=== PATIENT | female | born 1990 | race Hispanic/Latino ===

== ENCOUNTER 2018-02-22 10:08 | Emergency (ER) | payer OTHER | END 2018-02-22 11:40 | disposition home or self-care (01) | LOC: ERS 10:08 | DX: O98.513 Other viral diseases complicating pregnancy, third trimester (principal); B34.9 Viral infection, unspecified; Z3A.29 29 weeks gestation of pregnancy | CPT/HCPCS: 87804 ==

== ENCOUNTER 2018-05-07 14:05 | Inpatient (IN) | payer OTHER ==
[~2018-05-07 14:05] MED LIST: Lidocaine 2% MPF 10 ML AMP (For Epidural Use) ONE
[2018-05-07 15:49] VITALS: BMI 25.9
[2018-05-07 15:58] LABS: Amnisure Test No Membranes Rupture (No Rupture)
[2018-05-07 15:59] LABS: Amnisure Internal Control QC ACCEPTABLE (ACCEPTABLE)
[2018-05-07] MEDS ORDERED: Butorphanol Tartrate 1 MG/ML VIAL SLOW IVP PRN (16:28)
[2018-05-07] MEDS ORDERED: Methylergonovine 0.2 MG/ML VIAL IM PRN (16:28)
[2018-05-07] MEDS ORDERED: Zolpidem Tartrate 5 MG TAB PO PRN (16:28)
[2018-05-07] MEDS ORDERED: Lidocaine 1% (PF) 30 ML VIAL SC PRN (16:28)
[2018-05-07] MEDS ORDERED: Diphenoxylate HCl/Atropine Tablet PO PRN ×2 (16:28)
[2018-05-07] MEDS ORDERED: NS / Oxytocin 40 units/1000ml 1,000 ML IV PRN (16:28)
[2018-05-07] MEDS ORDERED: Ibuprofen 800 MG TAB PO PRN (16:28)
[2018-05-07] MEDS ORDERED: Carboprost 250 MCG/ML AMP IM PRN (16:28)
[2018-05-07] MEDS ORDERED: HYDROcodone/Acetaminophen 5/325 mg Tablet PO PRN ×2 (16:28)
[2018-05-07] MEDS ORDERED: Ondansetron PF 4 MG/2 ML Vial IVP PRN (16:28)
[2018-05-07] MEDS ORDERED: Docusate 100 MG CAP PO PRN (16:28)
[2018-05-07] MEDS ORDERED: Misoprostol 200 MCG TAB PR PRN (16:28)
[2018-05-07] MEDS ORDERED: Promethazine HCl 25 MG/ML VIAL IM PRN (16:28)
[2018-05-07] MEDS ORDERED: NS w/ Oxytocin 10 units 500 ML IV SCH ×2 (16:30)
[2018-05-07] MEDS: Lactated Ringer's 1,000 ML IV SCH (18:21)
[2018-05-07 18:44] LABS: Hemoglobin 10.8 g/dL (12.0-16.0); Mean Corpuscular HGB CONC 33.8 g/dL (32.0-36.0); Mean Corpuscular Hemoglobin 31.1 pg (27.0-31.0); Mean Corpuscular Volume 91.9 fL (78.0-98.0); Mean Platelet Volume 8.6 fL (7.4-10.4); Platelet Count 177 thou/uL (130-400); RBC Distribution Width 13.6 % (11.5-14.5); Red Blood Cell (RBC) Count 3.48 mill/uL (4.20-5.40)
[2018-05-07 19:21] LABS: HBSAg Index 0.23 S/CO (0-0.99); Hep B Surf Ag Non-Reactive S/CO (NonReactive); Syphilis Antibody Nonreactive (Nonreactive); Syphilis Antibody Index 0.04 S/CO (<1.00 Non-Reactive)
[2018-05-07] MEDS: Misoprostol 100 MCG TAB VAG SCH ×2 (20:38)
[2018-05-08] MEDS: Misoprostol 100 MCG TAB VAG SCH ×2 (02:33→05:59)
[2018-05-08] MEDS: Lactated Ringer's 1,000 ML IV SCH ×2 (02:33→09:56)
[2018-05-08] MEDS ORDERED: Fentanyl 4 mcg/Bup 0.1% Cadd 100 ML ONE (09:18)
[2018-05-08] MEDS ORDERED: Lidocaine 1.5%/Epinephrine 1:200,000 5 ML AMPUL IJ ONE (09:35)
[2018-05-08] MEDS ORDERED: Lactated Ringer's 500 ML IV PRN (11:26)
[2018-05-08] MEDS ORDERED: Promethazine HCl 25 MG/ML VIAL IM PRN ×2 (11:26→12:58)
[2018-05-08] MEDS ORDERED: diphenhydrAMINE 50 MG/ML VIAL IVP PRN (11:26)
[2018-05-08] MEDS ORDERED: Naloxone HCl 0.4 mg/ml Vial IVP PRN ×2 (11:26)
[2018-05-08] MEDS ORDERED: Acetaminophen 325 MG TAB PO PRN (11:26)
[2018-05-08] MEDS ORDERED: Eucerin (Mineral Oil/Petrolatum,White) 30 gm Jar TOP PRN (11:26)
[2018-05-08] MEDS ORDERED: Ondansetron PF 4 MG/2 ML Vial IVP PRN ×2 (11:26→12:58)
[2018-05-08] MEDS ORDERED: ePHEDrine/0.9% NaCl/PF SYRINGE 50 mg/10 ml SLOW IVP PRN (11:26)
[2018-05-08] MEDS ORDERED: Fentanyl 4 mcg/Bupivacaine 0.1% Cassette 100 ML EPIDURAL SCH (11:30)
[2018-05-08] MEDS ORDERED: Communication Order-Pharmacy FS SCH (11:30)
[2018-05-08] MEDS ORDERED: NS / Oxytocin 40 units/1000ml 1,000 ML ONE (11:43)
[2018-05-08] MEDS ORDERED: diphenhydrAMINE 25 MG CAP PO PRN (12:58)
[2018-05-08] MEDS ORDERED: Bisacodyl 10 MG SUPP PR PRN (12:58)
[2018-05-08] MEDS ORDERED: Varicella virus, LIVE 0.5 ML VIAL SC ONE (12:58)
[2018-05-08] MEDS ORDERED: Adacel (T-DAP) 0.5 ML SYRINGE IM ONE (12:58)
[2018-05-08] MEDS ORDERED: HYDROcodone/Acetaminophen 5/325 mg Tablet PO PRN ×2 (12:58)
[2018-05-08] MEDS ORDERED: Lanolin Ointment 7 GM TUBE TOP PRN (12:58)
[2018-05-08] MEDS ORDERED: Measles/Mumps/Rubella 10 MCG/0.5 ML VIAL SC ONE (12:58)
[2018-05-08] MEDS ORDERED: Milk Of Magnesia 30 ML UDCUP PO PRN (12:58)
[2018-05-08] MEDS ORDERED: Misoprostol 200 MCG TAB VAG PRN (12:58)
[2018-05-08] MEDS ORDERED: Preparation H Ointment 28 GM TUBE PR PRN (12:58)
[2018-05-08] MEDS ORDERED: Zolpidem Tartrate 5 MG TAB PO PRN (12:58)
[2018-05-08] MEDS ORDERED: Benzocaine/Menthol 20-0.5% 60 ML CAN TOP PRN (12:58)
[2018-05-08] MEDS ORDERED: NS / Oxytocin 40 units/1000ml 1,000 ML IV SCH (13:00)
--- NOTE | 2018-05-08 13:05 | PDOC.LDHP ---
Labor and Delivery H&P Chief complaint: other HPI: 27 y/o at 38w 4 days presents today for term medical induction after ABY found to be 3cm in clinic. Vertex. Cytotec induction planned after confirmation of negative amniosure. Current gestational age (weeks): 38 Due date: 05/17/18 Grav: 3 Para: 1 Current complications: none Abnormal US findings: No Current medications: pre- vitamins Allergies/Adverse Reactions: Allergies Allergy/AdvReac Type Severity Reaction Status Date / Time No Known Allergies Allergy Unverified 05/07/18 14:43 - Physical Exam Vital signs reviewed and normal: yes General: NAD Heart: RRR Lungs: CTAB Abdomen: gravid Extremeties: no edema FHT: category 1 - Assessment L&D Assessment: medically indicated induction - Plan Plan: admit to L&D, cervical ripening
[2018-05-08] MEDS: Ibuprofen 800 MG TAB PO SCH ×2 (14:58→21:38)
[2018-05-08] MEDS: Ferrous Sulfate 325 MG TAB PO SCH (16:17)
[2018-05-08] MEDS: Docusate Calcium (SURFAK) 240 MG CAP PO SCH (21:38)
[2018-05-09] MEDS: Misoprostol 100 MCG TAB VAG SCH ×2 (00:06→00:07)
[2018-05-09] MEDS: Ibuprofen 800 MG TAB PO SCH ×2 (05:51→13:58)
[2018-05-09 08:01] VITALS: BP 113/56; TEMP 98.2
[2018-05-09] MEDS ORDERED: Prenatal Vitamin 1 TAB PO SCH (09:00)
[2018-05-09] MEDS: Docusate Calcium (SURFAK) 240 MG CAP PO SCH (09:27)
[2018-05-09] MEDS: Ferrous Sulfate 325 MG TAB PO SCH (09:28)
--- NOTE | 2018-05-09 15:45 | PDOC.PP ---
Post Progress Note Post Day #: 1 PO intake tolerated: yes Flatus: yes Ambulation: yes Vital Signs (12 hours) Temp Pulse Resp BP Pulse Ox 05/09/18 08:00 98.2 F 78 20 113/56 L 97 05/09/18 04:20 97.8 F 86 18 130/60 Weight Weight 161 lb - Physical Examination General: NAD Cardiovascular: no m/r/g, RRR Respiratory: clear to auscultation bilaterally, non-labored breathing Abdominal: + bowel sounds, lochia, no distention Extremities: negative homans (B) Neurological: no gross focal deficits (DC to home.) Psychiatric: A&Ox3, normal affect Result Diagrams: 05/07/18 18:21 Additional Labs: Post Labs Blood Type A POSITIVE 05/07/18 18:21 Hep Bs Antigen Non-Reactive S/CO (NonReactive) 05/07/18 18:21
--- NOTE | 2018-05-10 02:26 | DN ---
DATE OF PROCEDURE: 05/08/2018 PREOPERATIVE DIAGNOSIS: Intrauterine at 38 weeks and 5 days with induction of labor for oligohydramnios with an amniotic fluid index of 3 cm in clinic. POSTOPERATIVE DIAGNOSIS: Intrauterine at 38 weeks and 5 days with induction of labor for oligohydramnios with an amniotic fluid index of 3 cm in clinic. PROCEDURE: Vacuum-assisted vaginal delivery for bradycardia encountered in the second stage of labor. A spontaneous small second-degree laceration of the perineum was noted post delivery. QUANTITATIVE BLOOD LOSS: 28. FINDINGS: Viable male weighing 3296 g or 7 pounds 4 ounces. Apgars 8 and 8. PROCEDURE IN DETAIL: The patient presented to [facility] where she was admitted to the labor and delivery service. The patient underwent a normal and uneventful labor with normal cervical dilatation until she was found to be completely dilated. She was then allowed to push and was able to bring the baby down and delivered the baby in a vertex presentation without difficulties. Once the head delivered in occiput anterior position, the shoulders followed spontaneously along with the rest of the baby's body. Once out the baby's mouth and nose were bulb suctioned. The cord was clamped and cut and baby was handed to waiting attendants. Cord blood was collected. Gentle fundal massage was performed and the placenta delivered intact without problems. Hemostasis was assured. Quantitative blood loss was calculated. Inspection of the cervix, vaginal vault, and perineum did not reveal any lacerations needing suturing. Once again, hemostasis was within normal limits and the patient was allowed to recover in the labor and delivery room. Baby went to nursery. After encountering bradycardia in the second stage which did not improve with maternal oxygenation, we proceeded using the Kiwi vacuum for delivery. The vacuum was applied, left to set for 2 minutes to create a larger surface area around the suction cup and then used through 2 contractions, which resulted in delivery of the head and easy delivery of the shoulders and body to follow. The vacuum was disarticulated easily. Cord was then clamped and cut. Baby handed to waiting attendants. The NICU team was present and did not seem to encounter any difficulties with the baby. Job ID: [id number]
== END 2018-05-09 16:30 | disposition home or self-care (01) | DRG 807 ==
LOC: L&D/OP 14:05 → L&D 18:09 → 3SW 05-08 15:16
PROVIDERS: ADMIT Obstetrics & Gynecology; ATTEND Obstetrics & Gynecology
PROC: 10D07Z6 Extraction of Products of Conception, Vacuum, Via Natural or Artificial Opening (ICD-10-PCS; principal; 2018-05-08)
PROC: 0KQM0ZZ Repair Perineum Muscle, Open Approach (ICD-10-PCS; 2018-05-08)
PROC: 3E033VJ Introduction of Other Hormone into Peripheral Vein, Percutaneous Approach (ICD-10-PCS; 2018-05-08)
PROC: 3E0P7VZ Introduction of Hormone into Female Reproductive, Via Natural or Artificial Opening (ICD-10-PCS; 2018-05-08)
DX: O41.03X0 Oligohydramnios, third trimester, not applicable or unspecified (principal); Z37.0 Single live birth; Z3A.38 38 weeks gestation of pregnancy; O70.1 Second degree perineal laceration during delivery; O99.89 Other specified diseases and conditions complicating pregnancy, childbirth and the puerperium; R00.1 Bradycardia, unspecified
CPT/HCPCS: 51702; 84112; 85027; 86780; 86850; 86900; 86901; 87340; J2001; J3490